=== PATIENT | female | born 1960 ===

== ENCOUNTER 2017-06-06 15:13 | Observation (INO) | payer OTHER ==
[~2017-06-06] VITALS: Ht 162.6 cm; Wt 81.1 kg
[2017-06-06] MEDS ORDERED: Polyethylene Glycol (PEG) 17 Gm Powder PO PRN (17:45)
[2017-06-06] MEDS ORDERED: Alum-Mag Hydrox-Simeth 30 mL Suspension PO PRN (17:45)
[2017-06-06] MEDS ORDERED: Ondansetron 2 mg/mL 2 mL Inj IVPUSH PRN (17:45)
--- NOTE | 2017-06-06 18:00 | NUR ---
Direct admit from [facility] Pt A&OX3 on arrival, SR 70s, BP 96/53. Denies cpn, dyspnea, lightheadedness, N or V. Rm air sat 100%. Saline lock in place. Awaiting admit orders; MD @ bedside assessing pt. U/A clean catch sent as per stat order. Admission & Med rec being completed by Admit RN.
--- NOTE | 2017-06-06 18:03 | PCM.HPMED ---
Subjective Date of Service Jun 06, 2017 Primary Provider: Admitting Physician: John Winkler MD Primary Care Physician: Roya Attending Physician: John Winkler MD Chief Complaint: Shortness of breath History of Present Illness: Mrs. Judd is a 56 year old female with next to no prior medical history that presented to the [facility] Emergency Department on with complaints of extreme shortness of breath that has been increasing for the past 3 days. She says the episode started when her came back home from his hospital stay and she felt an increasing sense of anxiety that wasn't responding to her usual attempts at calming down by breathing into a paper bag. Since then, she has had intermittent, sharp left sided chest pain that she rates 5/10 but does not radiate elsewhere. She finally decided to go to the hospital when she got lightheaded and felt a general sense of weakness throughout her body. She also endorses dysuria and right sided back pain but denies any fevers/chills, nausea/vomiting/diarrhea, headache, edema, orthopnea or abdominal pain. Review of Systems: A comprehensive review of systems was conducted with the patient and found to be negative except as above in the History of Present Illness. Allergies Coded Allergies: No Known Allergies (Unverified , 06/06/17) Home Medications She reports taking no home medications. PMH She denies any past medical history. Surgical History Tubal Ligation Tonsillectomy Cholescystectomy Right Foot/Ankle Fixation Appendectomy Family History Father: Stroke Mother: Asthma 9 Siblings, 6 sisters and 3 brothers: All healthy except for 1 brother with cardiac stents Social History Hx Alcohol Use: No (Quit 10 years ago) Hx Substance Use: No (Off Methadone 10/2017) Hx Tobacco Use: Yes (Quit 5 years ago) Smoking Status: Former Smoker (1 ppd for 10 years) Living Arrangement: with Family Exam Vital Signs 36.6C, HR 87, RR 16, BP 96/59, 98% on Room air Exam General: Edentulous woman laying in bed in NAD HEENT: NCAT, PERRLA, EOMI. No conjunctival injection. Membranes pink and moist. Neck: Supple with full ROM. No JVD or thyromegaly CV: Tachycardic but regular rhythm, no murmurs/rubs/gallop Pulm: CTA bilaterally, no wheezes/rales/rhonchi. Normal respiratory effort. Abd: Obese, soft. Nontender. Normoactive bowel sounds. No organomegaly noted. Extremities: No cyanosis/clubbing/edema Skin: Warm, dry. No obvious rashes or bruising. Neuro: A&Ox3. CN 2-12 intact. Muscle strength 3/5 in both lower extremities. No focal deficits. Psych: Normal mood and affect. Lab and Diagnostics 12-lead ECG EKG from [facility] showed SVT with rate >200; after Adenosine she converted to NSR at 100 bpm Assessment & Plan Mrs. Judd is a 56 year old female with next to no prior medical history that presented to the [facility] Emergency Department on with complaints of extreme shortness of breath that has been increasing for the past 3 days. She says the episode started when her came back home from his hospital stay and she felt an increasing sense of anxiety that wasn't responding to her usual attempts at calming down by breathing into a paper bag. Since then, she has had intermittent, sharp left sided chest pain that she rates 5/10 but does not radiate elsewhere. She finally decided to go to the hospital when she got lightheaded and felt a general sense of weakness throughout her body. She also endorses dysuria and right sided back pain but denies any fevers/chills, nausea/vomiting/diarrhea, headache, edema, orthopnea, abdominal pain. Her symptoms resolved during her transport here from [facility]. Supraventricular Tachycardia, present on admission. Resolved. - Patient presented to [facility] with chest pain, shortness of breath after increasing anxiety - Potentially - Resolved with Adenosine to NSR at 100 bpm - EKG ordered - Troponin negative at [facility] x1, will trend 2 more - BNP elevated, possible underlying cardiomyopathy - Echo ordered - Consider rate control if she becomes tachycardic - Dr. Winkler of Cardiology was consulted prior to transfer, appreciate his recommendations Urinary Tract Infection, present on admission. Acute. - Patient reports some pain with urination, increased frequency - UA from [facility] positive for leukocyte esterase, trace blood, WBC - UA with culture ordered, pending - Empiric Ceftriaxone once UA is taken Hyperglycemia without diagnosis of Diabetes Mellitus, present on admission. Ongoing. - Patient denies history of Diabetes but does have ample risk factors - A1C ordered Acetaminophen for mild pain, fever, headaches when necessary. Bowel regimen Senna and MiraLAX scheduled as necessary Zofran when necessary for nausea and vomiting. SubQ heparin on board. SCDs in place. Patient Status: The patient is currently admitted for observation status due to the resolution of the majority of her symptoms but is highly dependent on the continued stability of her medical condition. Pain Evaluation: Adequate Pain Control VTE Prophylaxis: Sub-Q Heparin (Unfractionated) VTE Mechanical Devices: Intermittant Pneumatic CD Resuscitation Status: Limited Interventions (Patient would like compressions/ defibrillation but does not want any intubation at all) Limited Interventions: Cardioversion/Defibrillation Attending Statement The patient was seen and examined together with Dr. Jj on 06/06/2017 and I agree with the history, exam and plan as outlined in the note above. . Jame Jj DO Jun 06, 2017 18:03 Volodymyr Canada MD Jun 07, 2017 15:39
[2017-06-06 18:16] VITALS: PULSE 84
[2017-06-06 18:20] VITALS: BP 96/59; PULSE 87; RESP 16; O2SAT 98
[2017-06-06 19:22] LABS: APPEARANCE,URINE HAZY (CLEAR,HAZY); COLOR,URINE YELLOW (YELLOW); OCCULT BLOOD,URINE TRACE (NEGATIVE); UROBILINOGEN,URINE 8 mg/dL (NORMAL)
[2017-06-06 20:00] VITALS: BP 88/53; PULSE 81; RESP 18; O2SAT 98
[2017-06-06] MEDS: Heparin 5,000 Unit/mL Inj SUBQ SCH (20:28)
[2017-06-06] MEDS: 0.9% Sodium Chloride 1,000 ML IV SCH (20:28)
[2017-06-06] MEDS: cefTRIAXone Inj 2,000 MG in Dextrose 5% Minibag Plus 50 ML IV SCH (20:28)
[2017-06-06 20:33] LABS: BASOPHILS % (AUTO) 0.2 % (0-3); MONOCYTES % (AUTO) 5.3 % (4-12); Mean Corpuscular Hemoglobin 27.1 pg (27.0-35.0); Mean Corpuscular Volume 85.9 fL (81-100); NEUTROPHILS % (AUTO) 70.1 % (40-74); Platelet Count 225 bil/L (150-400)
[2017-06-06 20:56] LABS: Magnesium 1.9 mg/dL (1.6-2.6)
[2017-06-07] VITALS (11 sets, daily range): BP systolic 88–114; BP diastolic 50–73; PULSE 76–89; RESP 16–22; O2SAT 95–99
[2017-06-07] MEDS: Heparin 5,000 Unit/mL Inj SUBQ SCH ×3 (02:41→17:02)
--- NOTE | 2017-06-07 03:35 | NUR ---
bp resident in to see pt after paged with lab results/ekg results and pt's sbp mid to high 80's/ 50's, map low 60s, pt's mentation wnl, pt voiding, order to continue monitoring and call if bp drops further, sbp has remained in high 80's to high 90's, map=low to upper 60's, pt has voided 400ml/s so far this shift, ivf continue at 100ml/hr, antibiotic given, pt afebrile, tele- sr, hr 80's, pt c/o chest discomfort with deep breath and movement, resident aware, troponin negative times two, pt denies sob, ls-clear, ra sats in upper 90's, pt denies n/v, ate approx 50% of dinner, pt up to bsc/br with sba, pt a/o times three, coop, see assessment charting, plan:echo
[2017-06-07] MEDS: 0.9% Sodium Chloride 1,000 ML IV SCH ×2 (04:27→11:26)
[2017-06-07] MEDS ORDERED: Furosemide 10 mg/mL 2 mL Inj IVPUSH ONE (10:45)
--- NOTE | 2017-06-07 10:45 | DRSVH ---
PROCEDURE: X-RAY CHEST, TWO VIEWS ([id number]) INDICATIONS: SHORTNESS OF BREATH TECHNIQUE: 2 views of the chest were acquired. COMPARISON: None. FINDINGS: Surgical changes and devices: None. Lungs and pleura: No pleural effusions or pneumothorax. There is pulmonary prominence suggesting mi ld edema. No focal consolidation. Mediastinum: Mediastinal contours are normal. Heart size is normal. Bones and chest wall: No suspicious bony abnormalities. Soft tissues appear unremarkable. IMPRESSION: 1. Pulmonary vascular prominence suggesting mild edema. Dictated by: Rah Abad M.D. on 06/07/2017 at 10:36 Approved by: Rah Abad M.D. on 06/07/2017 at 10:38
[2017-06-07] MEDS ORDERED: Magnesium Sulf 2 Gm/50mL Water 2 GM in IV Premix 1 EACH IV ONE (10:50)
--- NOTE | 2017-06-07 11:03 | NUR ---
Social Work: Initial Assessment/Multidisciplinary Rounds D: Per EMR review, pt is a 56 year old female admitted for hypontensive SVT. Pt is [place] [employer] insurance with no additional insurances. PCP Is through the [facility]. NOK is Les Judd, spouse, . Advanced directives not completed- info provided by RECYCLING OR RUBBISH COLLECTOR. Readmit score is low, 0/8. RECYCLING OR RUBBISH COLLECTOR met with the pt at bedside. Sw role explained, discharge planing checklist and contact info provided. Pt lives with her spouse in [facility] with her spouse. Pt is I at baseline, uses no DME and continues to drive. Pt is I was all ADLs and has been I with self-care during admission. Pt has a one story home with 2 steps to enter. Pt has never had HH or skilled rehab and identifies no concerns or barriers to discharge. pt's spouse or sister will transport. A: Pt who is I at baseline. P: Anticipate pt to discharge home via POV once medically stable; RECYCLING OR RUBBISH COLLECTOR to continue to follow to assess for discharge needs. BROCK Barkley Addendum: 06/07/17 at 1106 by RADHA LUNDBERG Amended: Links added.
--- NOTE | 2017-06-07 13:22 | DRSVH ---
[facility] [address] [place] [address] Echocardiogram Report Name: RANDI VELIZ JStudy Date: 06/07/2017 Height: 64 in Hospital Exam Location: [facility] Weight: 180 lb Gender: Female BSA: 1.9 m2 : 1960 Age: 56 yrs BP: 94/70 mmHg Reason For Study: Hypotension Ordering Physician: Performed By: [facility] Interpretation Summary 1) Normal left ventricular thickness, size, wall motion, and systolic function (EF 60-65%). 2) Normal right ventricular size and function. 3) No significant valvular disease. 4) No prior Echo available for comparison. Procedure: A two-dimensional transthoracic echocardiogram with color flow and Doppler was performed. The study quality was technically adequate. There is no prior echocardiogram noted for this patient. The patient was in normal sinus rhythm during the exam. Left Ventricle: The left ventricle is normal in size, wall thickness, and systolic function without any focal wall motion abnormalities. The ejection fraction is estimated to be 60-65%. Assessment of diastolic parameters indicates normal left ventricular diastolic function and normal filling pressures. Right Ventricle: The right ventricle is normal in size and function. Atria: The left atrial size is normal. Right atrial size is normal. The interatrial septum is intact with no evidence for an atrial septal defect. Mitral Valve: The mitral valve is grossly normal. The mitral valve is normal in structure and function. There is no mitral valve stenosis. There is no mitral regurgitation noted. There is trace mitral regurgitation. Aortic Valve: The aortic valve is trileaflet. The aortic valve opens well. There is no aortic valve stenosis. No aortic regurgitation is present. Tricuspid Valve: There is a trace or physiologic amount of tricuspid regurgitation. Pulmonary artery pressures cannot be estimated because of the lack of a measurable TR jet velocity. Pulmonic Valve: The pulmonic valve is not well seen, but is grossly normal. Great Vessels: The aortic root is normal size. The dimensions of the ascending aorta are normal. Pericardium/ Pleura There is no pericardial effusion. There is no pleural effusion. MMode/2D Measurements & Calculations LVIDd: 4.6 cm LA dimension: 3.9 cm RA long axis Ao root diam LVIDs: 2.8 cm FS: 39.2 % LA A2 area: 18.9 cm RA area Aortic Jxn: 3.1 cm IVSd: 0.83 cm LA A4 area: 19.7 cm asc Aorta Diam LVPWd: 0.87 cm LA length (vol) : 13.5 cm RA vol Ao Arch Diam (Prox LA vol: 56.4 ml : 34.1 ml Trans): 2.5 cm LA vol index RA : 18.2 mm/ RVDd major IVC diam: 1.8 cm : 4.7 cm LV dunn. diameter/BSA LV sys. diameter/BSA RVD1 (basal) RVD2 (mid): 2.6 cm (cm/m^2): 2.4 (cm/m^2): 1.5 Doppler Measurements & Calculations MV E max tristan MV E/A: 2.0 TR max tristan MV V2 mean : 88.4 cm/sec Med Peak E' Tristan : 226.9 cm/sec : 72.9 cm/sec MV A max tristan TR max PG MV mean PG : 44.3 cm/sec E/E' med: 10.1 : 20.6 mmHg MV P1/2t: 50.1 msec Lat Peak E' Tristan PA V2 max MV V2 VTI : 60.3 cm/sec E/E' lat: 11.2 PA mean PG MV dec time E/e' average: 10.6 : 0.70 mmHg : 0.17 sec MV A dur: 0.12 sec PA Accel Time MV P1/2t max tristan PA V2 mean : 38.0 cm/sec MVA(P1/2t): 4.4 cm2 Reading Physician:01:21 PM
--- NOTE | 2017-06-07 13:33 | CONS ---
[address] [address] CARDIOLOGY INPATIENT CONSULTATION REPORT PATIENT: RANDI VELIZ : 1960 MR#: [id number] ADMIT: 06/06/2017 JOB ID: [id number] DATE OF SERVICE: 06/07/2017 CARDIOLOGY INPATIENT CONSULT NOTE: REASON FOR CONSULTATION: Shortness of breath, SVT, chest discomfort, lightheadedness. HISTORY OF PRESENT ILLNESS: This is a very pleasant 56-year-old lady, in origin, who cardiology was asked to consult for episode of SVT, chest discomfort, lightheadedness, and shortness of breath. This patient does not have any past documented h/o coronary artery disease. She denies having history of hypertension or hypercholesterolemia. She has a history of drug abuse in the past. The patient was in her usual state of health when this week on Thursday, which would be June 03, 2017, she was sitting during the day and she developed a feeling of palpitations, racing heart, felt lightheaded, and also felt short of breath and had some chest discomfort in left side of her chest, not radiating anywhere. She started breathing in the bag and after a while she felt better and symptoms got much better and even dissipated, but after one hour she again started experiencing the same symptoms of racing heart, difficulty breathing, chest discomfort, and lightheadedness. She again started breathing in the bag and felt better, did not have palpitations anymore, but symptoms of shortness of breath and some slight chest discomfort were persistent. She tells me that after that, next day and day after, she did not feel any palpitations but she continued having shortness of breath to the point that she could not lay down flat and had dyspnea on exertion with walking. She also was experiencing slight chest discomfort again in the left side of her chest, not radiating anywhere, which was light. l Symptoms were on and off. On Thursday early in the morning, she felt worse to the point that she could not lay down having a hard time breathing and felt flickerin in her eyes. She cannot explain exactly what she felt but felt that her vision was weird and she felt lightheaded. Her brought her to [facility]. At [facility] she was found to be in narrow complex tachycardia/SVT with heart rate to 200 beats per minute. She got 6 mg of adenosine which brought her in sinus rhythm. While in SVT she had a slight ST depression up to 1 mm in the lateral leads. It looks like her systolic blood pressure on admission was in one-teens. I cannot find her other blood pressure readings in the medical chart when she was in [facility]. After conversion to sinus rhythm, she was in sinus rhythm with 98 beats per minute, with no ST changes there. She has not been having any chest discomfort anymore, but she still continues having shortness of breath with walking and with lying flat, so she prefers to have her head propped up. She also periodically feels lightheaded and sometimes she may still feel flickering in her eyes. She was transferred from [facility] to [facility] yesterday and her EKG when she came to [facility] showed sinus rhythm with heart rate 88 beats per minute and she had ST depression up to 1 mm and less in leads V2 through V6. Again, she does not have any chest discomfort. Her blood pressure has been on low side with systolic in 90s and 80s. Since she has been in [facility] she did not have any new episodes of SVT. The patient tells me that several years she has been having episodes of palpitations which happen three or four times during the year, and when she feels heart racing, she usually breathes in a bag and usually symptoms dissipate within 5 minutes. She never had shortness of breath or any chest discomfort. She denies history of any chest discomfort in the past. Also denies history of any shortness of breath or dyspnea on exertion. While in [facility], her labs showed that she had a negative troponin. She had normal kidney function and electrolytes. She had normal TSH and normal D-dimer. The patient tells me that two weeks ago she had a burning sensation when she was urinating, was told that she had UTI and was prescribed antibiotic which she took supposedly one week and which helped her dysuria, but she tells me that she continues to urinate often. She had a UA at [facility] which showed that urine was clear. She had negative nitrite and had a positive leukocyte esterase. The patient tells me that she has history of drug abuse in the past; eight months ago she came off from methadone which was prescribed by her doctor because she used to be using oxycodone in the past. So currently she is not using either oxycodone or methadone. When she was younger she periodically used cocaine and marijuana, but not anymore. She has a heavy history of tobacco use. She quit smoking tobacco cigarettes five years ago and before that she used to smoke one pack and half for 10 years. She also has a history of alcohol use, quit 14 years ago, and before that she used to drink six cans of beer every day. FAMILY HISTORY: Positive for coronary artery disease with her brother, who had a heart attack at age 80. REVIEW OF SYSTEMS: A 12-point review of systems is negative except the ones mentioned in the HPI. PAST MEDICAL HISTORY: She denies any past medical history. SURGICAL HISTORY: Tubal ligation, tonsillectomy, cholecystectomy, right foot/ankle fixation, appendectomy. PHYSICAL EXAMINATION: Vital signs: Temperature 36.4 Celsius, pulse 81 beats per minute, respiratory rate 18 per minute, blood pressure currently 94/70 and pulse oximetry shows 97% saturation on room air. General: She is in no acute distress. She has a hard time breathing periodically while speaking. Cooperative. HEENT: Mucous membranes moist. Sclerae anicteric. Neck: Supple. No thyromegaly. Cardiovascular: Heart tones distant. Regular rate and rhythm. No murmur appreciated. JVP is not elevated. Pulmonary: Decreased breathing sounds bilaterally. Crackles bilaterally, more on left than on the right. Crackles are more wet crackles. Abdomen: Nontender with palpation, soft. Extremities: No cyanosis, no clubbing, no edema. Skin: Warm and dry. No rash. Neuro: Alert and oriented x3. No gross abnormalities. LABORATORY DATA: Labs from June 06, 2017 show white blood cells 8.1, red blood cells 3.91, hemoglobin 10.6, hematocrit 3.6, platelets 225. Sodium 143, potassium 3.8, chloride 111, carbon dioxide 21, BUN 9, creatinine 0.82, glucose 108, calcium 8.1, magnesium 1.9. Total bilirubin 0.7, AST 18, ALT 17, alkaline phosphatase 82. ProBNP 1531. Total protein 6.1, albumin 3.2. Procalcitonin 0.03. Troponin negative x2. Triglycerides 92, cholesterol 114, LDL 64, VLDL 18.4, HDL of 31. IMAGING: A two-view chest x-ray done today on June 07, 2017 noted pulmonary vascular prominence suggesting mild edema. She had an echo done today which showed: normal left ventricular thickness, size, wall motion, and systolic function (EF 60-65%). Normal right ventricular size and function. No significant valvular disease. ASSESSMENT: This is a 56-year-old lady, , admitted to [facility] on June 06, 2017 as a transfer from [facility] where she was seen on June 06, 2017, where she was admitted with palpitations, lightheadedness, and slight chest discomfort in the setting of supraventricular tachycardia with heart rate 200 beats per minute. Converted to sinus rhythm after one dose of adenosine 6 mg IV. After that she has been chest discomfort free but still experiencing some shortness of breath and dyspnea on exertion and signs of pulmonary congestion, with positive orthopnea and PND. She did not have any new SVT episodes. She is hemodynamically stable, with the systolic blood pressure in 90s. 1. Lightheadedness, likely secondary from SVT. 2. 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 She had negative troponins. 3. Shortness of breath/dyspnea on exertion- could be secondary to flash pulmonary edema secondary to SVT she had. She does not have elevated JVP and she does not have lower extremity edema. Chest x-ray showed mild edema in her lungs. At this point, would recommend to give her furosemide 20 mg IV to diurese her and also give her potassium 40 mEq p.o. once today. Also would recommend to give her 2 g magnesium IV. Unfortunately we cannot start her on beta blockers because she is on the hypotensive side, 4. Heavy history of tobacco abuse. She has a heavy history of tobacco abuse and has family history of coronary artery disease. Echo showed today that she has a preserved cardiac function without wall motion abnormalities. The patient has risk factors of coronary artery disease. She can have ischemic work up - stress test done as an outpatient. 5. History of drug abuse in the past. We will assess the patient tomorrow again and see how she feels after diuresing her today and, depending on her clinical picture and her symptoms, we will recommend further management tomorrow. Will also discuss the case with Senior Restaurant Manager-Scroll Machine Operator Dr. Sawyer The case was discussed with corporate human resources manager Dr. Winkler, who agreed with the assessment and plan. DEBORA
--- NOTE | 2017-06-07 13:34 | PCM.CHPCAR ---
Consult Subjective Date of service Jun 07, 2017 Date of admit Jun 06, 2017 at 17:50 Provider Requesting Consult Primary Care Physician Primary Care Physician: Nopcp [facility] Bedside Blood Glucose: 108 No Active Prescriptions or Reported Meds Current Inpatient Medications Current Medications Heparin Sodium (Porcine) 5,000 unit Q8 SUBQ Last administered on 06/07/17 07:56 ; Admin Dose 5,000 UNIT; Start 06/06/17 at 17:45 Al Hydrox/Mg Hydrox/Simethicone 30 ml Q6H PRN PO; Start 06/06/17 at 17:45 Ondansetron HCl 4 to 8 mg Q4H PRN IVPUSH; Start 06/06/17 at 17:45 Senna 17.2 mg BID PRN PO; Start 06/06/17 at 17:45 Polyethylene Glycol 17 gm DAILY PRN PO; Start 06/06/17 at 17:45 Acetaminophen 650 mg 650 mg Q4H PRN PO Last administered on 06/07/17 11:39; Admin Dose 650 MG; Start 06/06/17 at 17:45 Ceftriaxone Sodium 2000 mg/ Dextrose/Water 50 ml @ 100 mls/hr Q24H IV Last administered on 06/06/17 20:28; Admin Dose 100 MLS/HR; Start 06/06/17 at 19:30 Sodium Chloride 1,000 ml @ 100 mls/hr Q10H IV Last administered on 06/07/17 04: 27; Admin Dose 100 MLS/HR; Start 06/06/17 at 18:50 Allergies: Coded Allergies: No Known Allergies (Unverified , 06/06/17) Social History Hx Alcohol Use: No (Quit 10 years ago)Hx Substance Use: No (Off Methadone 2016)Hx Tobacco Use: Yes (Quit 5 years ago) Smoking Status: Former Smoker (1 ppd for 10 years) Living Arrangement: with Family Exam Vital Signs Vital Sign - Last Date Time Temp Pulse Resp B/P Pulse Ox O2 Delivery O2 Flow Rate FiO2 06/07/17 12:34 36.9 76 20 114/73 98 Room Air Intake and Output 06/06/17 06/06/17 06/07/17 Cumulative From/Thru 14:59 22:59 06:59 06/06/17 18:20 - 06/07/17 06:07 Intake Total 0 ml 1540 ml 1540 ml Output Total 0 ml 650 ml 650 ml Balance 0 ml 890 ml 890 ml Intake Oral 0 ml 650 ml 650 ml IV Total 890 ml 890 ml Output Urine Total 0 ml 650 ml 650 ml # Bowel Movements 0 0 Lab and Diagnostics Result Diagram: 06/06/17202006/06/172020 Assessment & Plan VTE Prophylaxis: Sub-Q Heparin (Unfractionated) VTE Mechanical Devices: Intermittant Pneumatic CD Resuscitation Status: Limited Interventions (Patient would like compressions/ defibrillation but does not want any intubation at all) Limited Interventions: Cardioversion/Defibrillation Attending Statement ATTENDING ADDENDUM: I saw, examined, and evaluated the patient with TRAE Sidhu on 06/07/2017 and agree with the separate dictated note. Briefly, patient admitted after having symptomatic SVT that converted with adenosine. 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 Patient having persistent dyspnea that is likely due to flash pulmonary edema as noted on chest XR. Echo shows structurally normal heart. Plan is to do gentle diuresis today and refer her to Dr. Sawyer as outpatient for ablation. John Winkler MD Jun 07, 2017 13:34
--- NOTE | 2017-06-07 18:13 | NUR ---
Respiratory status pt c/o slight SOB this AM, bilateral crackles heard in mid to lower lobe with SpO2 in the high 90s. Mechanical Car Checker ordered for NS to be discontinued and to administer 20mg of IV Lasix. Pt reassessed in afternoon. No crackles noted bilaterally pt stating "I feel way better" no further c/o SOB. Ongoing care.
--- NOTE | 2017-06-07 19:04 | PCM.PNMED ---
Subjective Date of Service Jun 07, 2017 Subjective Mrs. Judd is a 56 year old female with next to no prior medical history that presented to the [facility] on with complaints of extreme shortness of breath that has been increasing for the past 3 days. She says the episode started when her came back home from his hospital stay and she felt an increasing sense of anxiety that wasn't responding to her usual attempts at calming down by breathing into a paper bag. Since then, she has had intermittent, sharp left sided chest pain that she rates 5/10 but does not radiate elsewhere. She finally decided to go to the hospital when she got lightheaded and felt a general sense of weakness throughout her body. Overnight no acute overnight events. Today - patient reports feeling well. She has no c/o of concerning symptoms. She denies chest pain, shortness of breath, dizziness, She denies fevers/chills , nausea/vomiting/diarrhea, headache, edema, orthopnea or abdominal pain. Exam Vital Signs Vital Sign - Last Date Time Temp Pulse Resp B/P Pulse Ox O2 Delivery O2 Flow Rate FiO2 06/07/17 05:27 87 06/07/17 04:28 36.5 18 100/61 98 Room Air Intake and Output 06/06/17 06/06/17 06/07/17 Cumulative From/Thru 15:00 23:00 07:00 06/06/17 18:20 - 06/07/17 06:07 Intake Total 0 ml 1540 ml 1540 ml Output Total 0 ml 650 ml 650 ml Balance 0 ml 890 ml 890 ml Intake Oral 0 ml 650 ml 650 ml IV Total 890 ml 890 ml Output Urine Total 0 ml 650 ml 650 ml # Bowel Movements 0 0 Exam 36.6C, HR 87, RR 16, BP 96/59, 98% on Room air Exam General: Edentulous woman laying in bed in NAD HEENT: NCAT, PERRLA, EOMI. No conjunctival injection. Membranes pink and moist. Neck: Supple with full ROM. No JVD or thyromegaly CV: Tachycardic but regular rhythm, no murmurs/rubs/gallop Pulm: CTA bilaterally, no wheezes/rales/rhonchi. Normal respiratory effort. Abd: Obese, soft. Nontender. Normoactive bowel sounds. No organomegaly noted. Extremities: No cyanosis/clubbing/edema Skin: Warm, dry. No obvious rashes or bruising. Neuro: A&Ox3. CN 2-12 intact. Muscle strength 3/5 in both lower extremities. No focal deficits. Psych: Normal mood and affect. IVs and Medications Medications Reviewed: Medications were reviewed in detail Lab and Diagnostics Result Diagram: 06/06/17202006/06/172020 12-lead ECG EKG from [place] ED showed SVT with rate >200; after Adenosine she converted to NSR at 100 bpm Assessment & Plan Mrs. Judd is a 56 year old female with next to no prior medical history that presented to the [facility] on with complaints of extreme shortness of breath that has been increasing for the past 3 days. She says the episode started when her came back home from his hospital stay and she felt an increasing sense of anxiety that wasn't responding to her usual attempts at calming down by breathing into a paper bag. Since then, she has had intermittent, sharp left sided chest pain that she rates 5/10 but does not radiate elsewhere. She finally decided to go to the hospital when she got lightheaded and felt a general sense of weakness throughout her body. She also endorses dysuria and right sided back pain but denies any fevers/chills, nausea/vomiting/diarrhea, headache, edema, orthopnea, abdominal pain. Her symptoms resolved during her transport here from [place]. Supraventricular Tachycardia, present on admission. Resolved. - Resolved with Adenosine to NSR at 100 bpm - EKG per above. - Echo (06/07/17) per above. - Troponin negative at [place] x1, will trend 2 more - BNP elevated, possible underlying cardiomyopathy - Dr. Winkler of Cardiology consulted, appreciate his recommendations - Dr. Sawyer will evaluate patient tomorrow for recommendations in regard of her SVT. She may need an electrophysiology study with possibility of ablation. Urinary Tract Infection, present on admission. Acute. - UA from [place] positive for leukocyte esterase, trace blood, WBC - UA with culture ordered, pending - Empiric Ceftriaxone Hyperglycemia without diagnosis of Diabetes Mellitus, present on admission. Ongoing. - Patient denies history of Diabetes but does have ample risk factors - A1C pending. Acetaminophen for mild pain, fever, headaches when necessary. Bowel regimen Senna and MiraLAX scheduled as necessary Zofran when necessary for nausea and vomiting. SubQ heparin on board. SCDs in place. Patient Status: The patient is currently admitted for observation status due to the resolution of the majority of her symptoms but is highly dependent on the continued stability of her medical condition. VTE Prophylaxis: Sub-Q Heparin (Unfractionated) VTE Mechanical Devices: Intermittant Pneumatic CD Resuscitation Status: Limited Interventions (Patient would like compressions/ defibrillation but does not want any intubation at all) Limited Interventions: Cardioversion/Defibrillation Attending Statement The patient was seen and examined together with Dr. Cervantes on 06/07/2017 and I agree with the history, exam and plan as outlined in the note above. . JASSI CERVANTES DO Jun 07, 2017 06:33 Volodymyr Canada MD Jun 08, 2017 09:22
[2017-06-07] MEDS: cefTRIAXone Inj 2,000 MG in Dextrose 5% Minibag Plus 50 ML IV SCH (20:18)
--- NOTE | 2017-06-07 23:23 | NUR ---
Ambulation/BP Pt hypotensive at 93/50. Denies any lightheadedness. No other symptoms noted. Pt ambulated with SBA for safety without issue. No changes in condition from sitting to standing. Steady gait. Pt encouraged to drink fluids. Continue to monitor.
[2017-06-08] MEDS: 0.9% Sodium Chloride 1,000 ML IV SCH ×2 (00:50→07:41)
[2017-06-08] MEDS: Heparin 5,000 Unit/mL Inj SUBQ SCH ×2 (01:40→07:41)
[2017-06-08 03:40] VITALS: BP 99/57; PULSE 75; RESP 18; O2SAT 95
[2017-06-08 08:30] VITALS: BP 118/73; PULSE 70; RESP 16; O2SAT 98
[2017-06-08 10:04] VITALS: PULSE 85
[2017-06-08] MEDS ORDERED: MeTOProlol XL 25 mg ER24 Tablet PO SCH (10:20)
--- NOTE | 2017-06-08 11:10 | PCM.DIMED ---
Jame Jj DO 06/08/17 1110: Discharge Instructions Date of Service Jun 08, 2017 Dates of Hospitalization Jun 06, 2017 at 17:50 Discharge Diagnosis Discharge Diagnosis Supraventricular Tachycardia Urinary Tract Infection Hyperglycemia without diagnosis of Diabetes Mellitus Diet Discharge Diet: No restrictions Activity Discharge Activity: No restrictions Call your provider Call your provider for: Shortness of breath, Chest pain, Vomitting, Other ( Dizziness, palpitations) Patient Instructions Patient Instructions Take your 12.5mg of Metoprolol Succinate once daily. Stop the medication if you have excessive fatigue or lightheadedness. You will follow up with Dr. Sawyer of Cardiology in 2-3 weeks for further evaluation of your heart rhythms. Follow-up Provider: Chris Sawyer MD Follow-up with PCP in: 2 weeks (2-3 weeks) Zakiya Perea DO 06/08/17 1628: Discharge Instructions Discharge Diagnosis Discharge Diagnosis Patient had hypotension Attending's Statement The patient was seen and examined together with Dr. Jj on 06/08/17 and I agree with the history, exam and plan as outlined in the note above. Jame Jj DO Jun 08, 2017 11:10 Zakiya Perea DO Jun 08, 2017 16:28
[2017-06-08] MEDS ORDERED: METO25TA99 PO (11:11)
[2017-06-08 11:15] LABS: Magnesium 2.1 mg/dL (1.6-2.6)
--- NOTE | 2017-06-08 11:37 | PCM.DC.MED ---
Discharge Summary Date of Service Jun 08, 2017 Dates of Hospitalization Date of Hospital Admission Jun 06, 2017 at 17:50 Date of Discharge: Jun 08, 2017 Providers: Admitting Physician: John Winkler MD Primary Care Physician: Roya Attending Physician: Zakiya Perea DO Diagnosis at Time of Discharge Diagnosis at Time of Discharge Supraventricular Tachycardia Urinary Tract Infection Hypotension Prediabetes Consultations Dr. Winkler, Cardiology Procedures ECG 12 Lead EKG from [place] ED showed SVT with rate >200; after Adenosine she converted to NSR at 100 bpm Brief History Mrs. Judd is a 56 year old female with next to no prior medical history that presented to the [facility] Department on with complaints of extreme shortness of breath that has been increasing for the past 3 days. She says the episode started when her came back home from his hospital stay and she felt an increasing sense of anxiety that wasn't responding to her usual attempts at calming down by breathing into a paper bag. Since then, she has had intermittent, sharp left sided chest pain that she rates 5/10 but does not radiate elsewhere. She finally decided to go to the hospital when she got lightheaded and felt a general sense of weakness throughout her body. She also endorses dysuria and right sided back pain but denies any fevers/chills, nausea/vomiting/diarrhea, headache, edema, orthopnea or abdominal pain. At [place] she had an EKG was done that revealed SVT with a rate of >200. She was given Adenosine and converted to NSR with a rate ~100 bpm. As she became hypotensive, she was transferred here to [facility]. During her admission she was found to be slightly fluid overloaded (Chest XR, BNP, some crackles on exam) and diuresed accordingly. She did have an Echo to evaluate for underlying cardiomyopathy with her histories but this was ultimately benign. She was discharged on 12.5mg of Metoprolol Succinate and will follow up with Dr. Sawyer in 2-3 weeks for possible electrophysiology evaluation. Hospital Course Mrs. Judd is a 56 year old female with next to no prior medical history that presented to the [facility] Department on with complaints of extreme shortness of breath that has been increasing for the past 3 days. She says the episode started when her came back home from his hospital stay and she felt an increasing sense of anxiety that wasn't responding to her usual attempts at calming down by breathing into a paper bag. Since then, she has had intermittent, sharp left sided chest pain that she rates 5/10 but does not radiate elsewhere. She finally decided to go to the hospital when she got lightheaded and felt a general sense of weakness throughout her body. She also endorses dysuria and right sided back pain but denies any fevers/chills, nausea/vomiting/diarrhea, headache, edema, orthopnea, abdominal pain. Her symptoms resolved during her transport here from [place]. For full hospital course see below: Supraventricular Tachycardia, present on admission. Resolved. - Resolved with Adenosine to NSR at 100 bpm - Patient was in NSR her entire admission - Echo as above - Troponins were negative x3 - Metoprolol Succinate 12.5mg daily until outpatient evaluation - Follow up with Dr. Sawyer scheduled for 2-3 weeks for further evaluation with possible electrophysiology study. Urinary Tract Infection, present on admission. Acute. - UA from [place] positive for leukocyte esterase, trace blood, WBC - Patient reports no more dysuria, frequency - 3 days IV Ceftriaxone received, no further antibiotic necessary Hyperglycemia without diagnosis of Diabetes Mellitus, present on admission. Ongoing. - Patient denies history of Diabetes but does have ample risk factors - A1C 5.7 signifying prediabetes Hypotension -Continue Metoprolol 12.5mg daily as per cardiology recommendations -Follow up with Dr. Sawyer Patient Status: The patient was discharged home in stable and improved condition. She understands the treatment plan going forward and under what conditions she is to return to the hospital. She will follow up with Cardiology in 2-[address] Sawyer. Exam Vital Signs (Last) Date Time Temp Pulse Resp B/P Pulse Ox O2 Delivery O2 Flow Rate FiO2 06/08/17 10:04 85 06/08/17 08:30 36.5 16 118/73 98 Room Air Exam General: Edentulous woman laying in bed in NAD HEENT: NCAT, PERRLA, EOMI. No conjunctival injection. Membranes pink and moist. Neck: Supple with full ROM. No JVD or thyromegaly CV: RRR, no murmurs/rubs/gallop Pulm: CTA bilaterally, no wheezes/rales/rhonchi. Normal respiratory effort. Abd: Obese, soft. Nontender. Normoactive bowel sounds. No organomegaly noted. Extremities: No cyanosis/clubbing/edema Skin: Warm, dry. No obvious rashes or bruising. Neuro: A&Ox3. CN 2-12 intact. Muscle strength normal in all lower extremities. No focal deficits. Psych: Normal mood and affect. Test 06/06/17 18:56 06/06/17 20:21 06/07/17 02:20 06/08/17 10:25 Urine Color Yellow (YELLOW) Urine Appearance Hazy (CLEAR,HAZY) Urine pH 7.0 (5.0-8.0) Urine Specific [place] 1.010 (1.003-1.035) Urine Protein Negativemg/dL (NEG,TRACE) Urine Glucose (UA) Negativemg/dL (NEGATIVE) Urine Ketones Negativemg/dL (NEGATIVE) Urine Occult Blood Trace (NEGATIVE) Urine Nitrite Negative (NEGATIVE) Urine Bilirubin Negative (NEGATIVE) Urine Urobilinogen 8mg/dL (NORMAL) Urine Leukocyte Esterase Small (NEGATIVE) Urine RBC 3-10/hpf (0-2) Urine WBC 11-50/hpf (0-5) Urine Epithelial Cells Moderate/hpf (NONE-MOD) Urine Crystals None seen (NONE SEEN) Urine Bacteria Few/hpf (NONE-FEW) Urine Hyaline Casts None/lpf (NONE) Urine Granular Casts None seen (NONE SEEN) Urine Waxy Casts None seen (NONE SEEN) Urine Red Blood Cell Casts None seen (NONE SEEN) Urine White Blood Cell Casts None seen (NONE SEEN) Urine Mucus None seen (None Seen) Urine Trichomonas None seen (NONE SEEN) Urine Yeast None (NONE SEEN) Urinalysis Comment None Urine Culture Reflexed Indicated White Blood Count 8.1th/mm3 (3.8-10.1) Red Blood Count 3.91mil/mm3 (3.90-5.20) Hemoglobin 10.6g/dL (12.0-15.6) Hematocrit 33.6% (35.0-46.0) Mean Corpuscular Volume 85.9fL (81-100) Mean Corpuscular Hemoglobin 27.1pg (27.0-35.0) Mean Corpuscular Hemoglobin Concent 31.5% (32.0-37.0) Red Cell Distribution Width 13.4% (12.3-15.4) Platelet Count 225bil/L (150-400) Neutrophils (%) (Auto) 70.1% (40-74) Lymphocytes (%) (Auto) 22.0% (14-46) Monocytes (%) (Auto) 5.3% (4-12) Eosinophils (%) (Auto) 2.0% (0-5) Basophils (%) (Auto) 0.2% (0-3) Hemoglobin A1c 5.7% (4.8-5.6) Total Bilirubin 0.7mg/dL (0.0-1.2) Aspartate Amino Transf (AST/SGOT) 18U/L (0-50) Alanine Aminotransferase (ALT/SGPT) 17U/L (0-32) Alkaline Phosphatase 82U/L (25-150) Pro-B-Type Natriuretic Peptide 1531pg/mL (0-287) Total Protein 6.1g/dL (6.4-8.4) Albumin 3.2g/dL (3.4-5.0) Procalcitonin 0.03ng/mL (0.00-0.08) Troponin T 0.010ug/L (0.0-0.011) Triglycerides Level 92mg/dL (0-149) Cholesterol Level 114mg/dL (100-199) LDL Cholesterol, Calculated 64.600mg/dL (0-99) VLDL Cholesterol 18.400mg/dL HDL Cholesterol 31mg/dL (>39) Cholesterol/HDL Ratio 3.68 (0.0-4.4) Sodium Level 141mEq/L (134-144) Potassium Level 4.0mEq/L (3.5-5.2) Chloride Level 106mEq/L (97-108) Carbon Dioxide Level 22mmol/L (18-29) Blood Urea Nitrogen 9mg/dL (6-24) Creatinine 0.79mg/dL (0.57-1.00) Estimat Glomerular Filtration Rate 108mL/min (>59) Glucose Level 108mg/dL (60-99) Calcium Level 9.0mg/dL (8.5-10.1) Magnesium Level 2.1mg/dL (1.6-2.6) Discharge Medications Discharge Medications Metoprolol Succinate ER (Metoprolol Succinate ER) 25 Mg Tab.er.24h 12.5 MG PO DAILY Prescribed by: ARUN JJ DO Followup Plan Discharge Diet: No restrictions Discharge Activity: No restrictions Patient Instructions Take your 12.5mg of Metoprolol Succinate once daily. Stop the medication if you have excessive fatigue or lightheadedness. You will follow up with Dr. Sawyer of Cardiology in 2-3 weeks for further evaluation of your heart rhythms. Follow-up Provider: Chris Sawyer MD Follow-up with PCP in: 2 weeks (2-3 weeks) Time spent greater than 35 min Attending Statement The patient was seen and examined together with Dr. Jj on 06/08/17 and I have added additional information to the note above. copies to: Chris Sawyer MD, Jeffery S DO Jun 08, 2017 11:37 Zakiya Perea DO Jun 08, 2017 17:29
--- NOTE | 2017-06-08 11:44 | PROG NOTE ---
[address] [address] PROGRESS NOTE PATIENT: FLORENCE VELIZ : 1960 MR#: [id number] ADMIT: 06/06/2017 JOB ID: [id number] DATE OF SERVICE: 06/08/2017 I saw and examined the patient. Please see Nelson Page's notes for detail. IMPRESSION: 1. Paroxysmal supraventricular tachycardia. 2. History of tobacco use. 3. History of drug abuse. PLAN: The patient is currently in sinus rhythm. She could be discharged from the hospital today. I advised her regarding Valsalva maneuver, carotid sinus massage and ice-cold water. She will follow with Dr. Sawyer for consideration of electrophysiologic study and radiofrequency ablation. DEBORA
--- NOTE | 2017-06-08 12:02 | NUR ---
P: Arrythmia I: NSR. No ectopy noted. Denies pain. Taking diet and fluids well. Up independently in room without any pain or dizziness or SOB. Room air with sats stable. VSS. Voiding qs. Saline lock dc'd with catheter intact. Discharge instructions given with care notes and Rx. Indicates understanding of discharge instructions. E: Stable. S: Discharged to home with her spouse.
--- NOTE | 2017-06-08 13:01 | NUR ---
Social Work Note: Multidisciplinary Rounds/ Discharge Data& Assessment: Pt was discussed in AM rounds this morning. Per MD, pt is medically ready for discharge. Brittany Judd is a 56 year old female admitted on 06/06/2017 under observation for hypertensive SVT. Per MD pt is medically improved and ready to discharge. Pt Independent at baseline and has been independent with self care during this hospitalization. Pt independent with mobility in her room as well. SW met with pt at bedside to confirm discharge plan and assess for any unmet needs. Pt confirmed plan to discharge home via POV with spouse. Pt denies any other needs. No other discharge needs or MD orders identified. Plan: Per MD pt is medically ready to discharge home via POV. Pt denies any other needs. No other discharge needs or MD orders identified. BROCK Pierce
--- NOTE | 2017-06-08 13:10 | PROG NOTE ---
[address] [address] CARDIOLOGY INPATIENT PROGRESS NOTE PATIENT: FLORENCE VELIZ : 1960 MR#: [id number] ADMIT: 06/06/2017 JOB ID: [id number] DATE: 06/08/2017 SUBJECTIVE: The patient is lying down comfortably in the bed. She tells me that she is feeling very well today. Since she got IV furosemide yesterday, she has been urinating a lot and her dyspnea on exertion/shortness of breath improved. She does not have any more orthopnea or PND. She can lay down flat without any problems. She denies having any chest discomfort. She has been walking in the room without any problem. She has a good appetite Denies having any palpitations, presyncopal or syncopal episodes. EXAM: Vital signs: Temperature 36.5 Celsius, pulse 70 beats per minute, respiratory rate 16 per minute, blood pressure 118/73 mmHg, pulse oximetry 98% saturation on room air. General: She is in no acute distress. She is comfortably lying in the bed and breathing normally and quietly. Cooperative. HEENT: Mucous membranes moist. Sclerae anicteric. Neck: Supple. No thyromegaly. Cardiovascular: Regular rate and rhythm. Normal S1, S2. No murmur appreciated. JVP is not elevated. Pulmonary: Normal breathing sounds bilaterally. No crackles. No wheezing. Abdomen: Nontender with palpation. Soft. Extremities: No lower extremity edema. No cyanosis. No clubbing. Skin: Warm and dry. No rash. Neuro: Alert and oriented x3. No gross abnormalities. LABORATORIES: Labs from today are pending. BMP and magnesium were ordered and results are pending. ASSESSMENT/PLAN: This is a 56-year-old lady, , admitted to [facility] on June 06, 2017, as a transfer from [facility] where she was seen on June 06, 2017, where she was admitted was palpitations, lightheadedness and chest discomfort in the setting of supraventricular tachycardia with heart rate 200 beats per minute. Converted to sinus rhythm after one dose of adenosine 6 mg IV. After that, she was continuing to have some chest discomfort and shortness of breath, and she was orthopneic and had PND. She had signs of flash pulmonary edema, likely secondary to SVT she had. She was given one dose IV furosemide 20 mg yesterday. Also, she was given p.o. potassium supplement and magnesium supplement. She diuresed well and currently she improved clinically. On telemetry, no recurrence of SVT and she is euvolemic on exam. No signs of pulmonary edema anymore. # Narrow complex tachycardia, likely either orthodromic AVRT or AV gurmeet reentrant tachycardia. She has been having negative troponins. There is no recurrence of SVT on telemetry. She is in sinus rhythm with heart rate in 70s-80s. Yesterday, her blood pressure was on the lower side in 90s, and we did not have a room to start her on any beta-blockers. Today's blood pressure is 118/73 mmHg, which is better than it was before. She improved clinically. Basically, she is on her normal baseline. No signs of pulmonary flash edema. No orthopnea, no PND. No chest discomfort. All these symptoms were likely provoked by her SVT. At this point, she does not need any more diuresis. Lab results are pending. If she maintains a reasonable blood pressure, we would recommend to start her on metoprolol succinate 12.5 mg daily. Otherwise, if there is no room in blood pressure, then she can be discharged without any beta-blockers on board. At this point, Cardiology will sign off. From our standpoint, she can go home. We will coordinate with Dr. Sawyer her case. She will need a follow up appointment with Dr. Sawyer for potential electrophysiology study and potential SVT ablation that can be done as an outpatient. I already explained to the patient in detail the pathophysiology of SVT and how to do Valsalva maneuvers and other maneuvers to help herself if she has a new bout of SVT at home. The case was discussed and coordinated with the on-call elevator repair mechanic, Dr. Amos, who agreed with assessment and plan. DEBORA
== END 2017-06-08 11:57 | disposition home or self-care (01) ==
LOC: CCU 17:50 → INTOOBSV 17:50 → PCC 18:13
PROVIDERS: ADMIT Internal Medicine Cardiovascular Disease; ATTEND Internal Medicine
DX: I47.1 Supraventricular tachycardia (principal); N39.0 Urinary tract infection, site not specified; I95.9 Hypotension, unspecified; R73.03 Prediabetes; R73.9 Hyperglycemia, unspecified; R07.9 Chest pain, unspecified; Z87.891 Personal history of nicotine dependence; Z87.898 Personal history of other specified conditions
CPT/HCPCS: 36415; 71020; 80048; 80053; 80061; 81000; 83036; 83735; 83880; 84145; 84484; 85025; 87086; 93005; 96365; 96366; 96375; C8929; G0378; J0696; J1644; J1940; J7030

== ENCOUNTER → 2017-07-29 | Day surgery (SDC) | payer MEDICAID, OTHER ==
[~2017-07-29] MED LIST: 0.9% Sodium Chloride 1,000 ML IV SCH; HYDR-4003 PO; Lactated Ringer's 1,000 ML IV SCH
== END | disposition home or self-care (01) ==
LOC: SOUO 00:54
PROVIDERS: ATTEND Internal Medicine Cardiovascular Disease
DX: I47.1 Supraventricular tachycardia (principal); Z53.9 Procedure and treatment not carried out, unspecified reason